=== PATIENT | male | born 1970 | race Caucasian/White ===

== ENCOUNTER 2024-11-20 09:39 | Day surgery (SDC) | payer BC ==
[~2024-11-20] VITALS: Ht 185.4 cm; Wt 95.1 kg
[~2024-11-20 09:39] MED LIST: DULO30 PO; Glycopyrrolate 0.2 MG/ML 1MLVIAL ONE; LORA1 PO; Ondansetron HCl 2 MG / ML 2ML Vial ONE; ePHEDrine Sulfate 50 MG/ML 1ML Injection ONE
[2024-11-20] MEDS ORDERED: HADLIMA40 MG/0.8 (10:28)
[2024-11-20] MEDS ORDERED: FOLI1 (10:30)
[2024-11-20] MEDS ORDERED: METERG.2 (10:30)
[2024-11-20] MEDS ORDERED: Lisinopril2.5 MG (10:32)
[2024-11-20] MEDS ORDERED: METTREX2.5 (10:34)
[2024-11-20 12:40] VITALS: BP 106/82
== END 2024-11-20 12:31 | disposition home or self-care (01) ==
LOC: ORSCSDS 09:39
PROVIDERS: Surgery
PROC: 0DBM8ZX Excision of Descending Colon, Via Natural or Artificial Opening Endoscopic, Diagnostic (ICD-10-PCS; principal; 2024-11-20 11:00)
PROC: 0DBN8ZX Excision of Sigmoid Colon, Via Natural or Artificial Opening Endoscopic, Diagnostic (ICD-10-PCS; principal; 2024-11-20 11:00)
DX: Z12.11 Encounter for screening for malignant neoplasm of colon (principal); K63.5 Polyp of colon; M05.9 Rheumatoid arthritis with rheumatoid factor, unspecified; I10 Essential (primary) hypertension; N40.0 Benign prostatic hyperplasia without lower urinary tract symptoms; F41.9 Anxiety disorder, unspecified; F32.A Depression, unspecified; Z79.899 Other long term (current) drug therapy; F17.210 Nicotine dependence, cigarettes, uncomplicated
CPT/HCPCS: 88305; J2003; J2405; J2704; J7120